=== PATIENT | male | born 1980 | race Caucasian/White ===

== ENCOUNTER 2018-03-25 09:57 | Outpatient (CLI) | payer OTHER ==
[2018-03-25] MEDS ORDERED: BUFFERED LIDOCAINE 10 ML SYRINGE ONE (11:06)
[2018-03-25] MEDS ORDERED: GADOPENTETATE DIMEGLUMINE 5 ML VIAL IVP ONE ×2 (11:07→13:13)
[2018-03-25] MEDS ORDERED: IOTHALAMATE MEGLUMINE 50 ML VIAL ONE (11:07)
[2018-03-25] MEDS ORDERED: BUFFERED LIDOCAINE 10 ML SYRINGE IU ONE (13:13)
[2018-03-25] MEDS ORDERED: IOTHALAMATE MEGLUMINE 50 ML VIAL IVP ONE (13:13)
--- NOTE | 2018-03-25 15:32 | XRAY Report ---
Reason: PAIN IN SHOUDLER Procedure Date: 03/25/2018 Accession Number: [id number] / [id number] Procedure: FL - Arthrogram Needle Placement CPT Code: FULL RESULT: EXAM: LEFT SHOULDER ARTHROGRAPHIC INJECTION WITH FLUOROSCOPIC GUIDANCE EXAM DATE: 03/25/2018 11:57 AM. CLINICAL HISTORY: Pain in shoulder. COMPARISON: ARTHROGRAM SHOULDER LT 03/25/2018 11:32 AM. TECHNIQUE: The risks, benefits, and alternatives of the procedure were discussed with the patient. All questions were answered. Written and verbal consent were obtained. The glenohumeral joint was marked under fluoroscopy and prepped and draped in a sterile manner. Local anesthesia was performed with 1% lidocaine. A 22-gauge needle was then inserted into the glenohumeral joint. 10 mL of a solution containing 25% 1% lidocaine, 25% iodinated contrast, and a 1:200 dilution of gadolinium contrast in sterile saline was then injected. The needle was removed without immediate complication. Other: None. Fluoroscopy Time: 0.3 minutes. Number of Images: 6. FINDINGS: Bones and joints: No fracture or subluxation. Injection: Fluoroscopic images demonstrate needle placement and contrast in the glenohumeral joint. No contrast extravasation outside of the glenohumeral joint. IMPRESSION: Successful fluoroscopically guided arthrographic injection of the shoulder. [facility]
--- NOTE | 2018-03-26 09:23 | MRI Report ---
Reason: PAIN IN SHOUDLER Procedure Date: 03/25/2018 Accession Number: [id number] / [id number] Procedure: MRI - Arthrogram Shoulder LT CPT Code: FULL RESULT: EXAM: LEFT SHOULDER MRI ARTHROGRAM WITH CONTRAST EXAM DATE: 03/25/2018 12:52 PM. CLINICAL HISTORY: Pain in left shoulder. COMPARISON: None. TECHNIQUE: Multiplanar, multisequence T1-weighted and fluid-sensitive sequences of the shoulder after an arthrographic injection of dilute gadolinium, dictated under a separate exam. Other: None. FINDINGS: Acromioclavicular Region: The acromion is type II. Mild degenerative change at the joint. The coracoacromial and coracoclavicular ligaments are intact. Minimal edema without contrast in the subacromial/subdeltoid bursa. Glenohumeral Region: No subluxation. No loose bodies. Shallow partial-thickness cartilage loss at the central joint. Deep partial-thickness fissuring/tearing at the humeral head. Small humeral head osteophytes. The glenohumeral ligaments and joint capsule are unremarkable. Bone Marrow: No fracture or bone lesion. Reactive cysts at the greater tuberosity. Labrum: Partial-thickness undersurface tear superior labrum extending deep and anterior to the biceps anchor. Fraying and free edge irregularity at the anterior inferior aspect. Biceps Tendon: Moderate thickening of the intra-articular portion. Musculature/Rotator Cuff: Mild supraspinatus tendinopathy with shallow bursal surface fraying. Focal partial-thickness articular surface and intrasubstance tear at the anterior insertion. Infraspinatus and teres minor tendons intact. Thickening and contrast imbibition at the subscapularis insertion. A component of this is likely due to contrast administration. No edema or fatty atrophy. Other: The subcutaneous tissues are unremarkable. IMPRESSION: 1. Mild supraspinatus tendinopathy with shallow bursal surface fraying and focal shallow partial-thickness intrasubstance and articular surface tear anterior insertion. 2. Moderate biceps tendinopathy. 3. Superior labral tear extending anterior to posterior (SLAP tear). Degenerative fraying anterior-inferior labrum. 4. Mild degenerative changes at the glenohumeral joint with deep partial-thickness fissuring/tearing of the humeral head cartilage. 5. Mild acromioclavicular degenerative change. [facility] MUSCULOSKELETAL RADIOLOGY SECTION
== END 2018-03-25 09:58 | disposition home or self-care (01) ==
LOC: DI 09:57
PROVIDERS: ATTEND Physician Assistant
DX: M75.102 Unspecified rotator cuff tear or rupture of left shoulder, not specified as traumatic (principal); S43.432A Superior glenoid labrum lesion of left shoulder, initial encounter; M19.012 Primary osteoarthritis, left shoulder; M67.98 Unspecified disorder of synovium and tendon, other site
CPT/HCPCS: 23350; 73222; 77002; Q9961

== ENCOUNTER 2019-02-13 05:55 | Day surgery (SDC) | payer OTHER ==
[2019-02-13] MEDS ORDERED: PROPOFOL 200 MG/20 ML VIAL IVP ONE (05:56)
[2019-02-13] MEDS ORDERED: fentaNYL 100 MCG/2 ML VIAL IVP ONE (05:56)
[2019-02-13] MEDS ORDERED: ePHEDrine 50 MG/ML VIAL IVP ONE (05:56)
[2019-02-13] MEDS ORDERED: MIDAZOLAM 2 MG/2 ML VIAL IVP ONE (05:56)
[2019-02-13] MEDS ORDERED: KETOROLAC 30 MG/ML VIAL IVP ONE (05:56)
[2019-02-13] MEDS ORDERED: DEXAMETHASONE 4 MG/ML VIAL IVP ONE (05:56)
[2019-02-13] MEDS ORDERED: cefTRIAXone 2 GM VIAL ONE (06:13)
[2019-02-13] MEDS ORDERED: BUPIVACAINE 0.25% PF 30 ML VIAL ONE (06:51)
[2019-02-13] MEDS ORDERED: LACTATED RINGERS 1,000 ML IV ONE (06:53)
--- NOTE | 2019-02-13 07:00 | ANESTHESIA ---
Pre-Anesthesia VS, & Labs - Diagnosis L AC joint arthritis - Procedure L open DCE Vital Signs: Temp Pulse Resp BP Pulse Ox 36.5 C 71 16 134/84 H 100 02/13/19 06:38 02/13/19 06:38 02/13/19 06:38 02/13/19 06:38 02/13/19 06:38 Height 5 ft 9.5 in Weight (kg) 92.99 kg - NPO >8 hours Last Fluid Intake: 0415 Home Medications and Allergies Home Medications: Ambulatory Orders Fexofenadine HCl [Annmarie Allergy] 180 mg PO 02/09/19 Pseudoephedrine [Sudafed] 60 mg PO Q6H 02/09/19 Guaifenesin/Dextromethorphan [Cough Dm Syrup] 1 PRN 02/13/19 Multivitamin [Multivitamins] 1 DAILY 02/13/19 Fexofenadine HCl [Annmarie Allergy] 180 mg PO 02/09/19 Pseudoephedrine [Sudafed] 60 mg PO Q6H 02/09/19 Guaifenesin/Dextromethorphan [Cough Dm Syrup] 1 PRN 02/13/19 Multivitamin [Multivitamins] 1 DAILY 02/13/19 Allergies/Adverse Reactions: Allergies Allergy/AdvReac Type Severity Reaction Status Date / Time No Known Drug Allergies Allergy Verified 02/09/19 14:18 Anes History & Medical History - Anesthetic History Anesthesia Complications: reports: No previous complications Family history of Anesthesia Complications: Denies Family history of Malignant Hyperthermia: Denies - Medical History Cardiovascular: reports: None Pulmonary: reports: None Gastrointestinal: reports: None Urinary: reports: None Musculoskeletal: reports: Other Endocrine/Autoimmune: reports: None Skin: reports: None Psychosocial: reports: Alcohol (4-5 a week) Exam General: Alert, Oriented x3, Cooperative Dental: WNL Mouth Opening: Greater than 4 Fingerbreadths Neck Mobility: Normal Mallampati classification: I Thyromental Distance: greater than 6 cm Respiratory: Lungs clear, Normal breath sounds, No respiratory distress, Other (dry cough for 3 days) Cardiovascular: Regular rate Neurological: Normal speech Mental/Cognitive Status: Alert/Oriented X3, Normal for patient Cognitive Status: Within normal limits Plan Anesthesia Type: General Consent for Procedure(s) Verified and Reviewed: Yes Code Status: Attempt Resuscitation ASA classification: 1-Healthy patient Is this case an emergency?: No
[2019-02-13] MEDS ORDERED: BUPIVACAINE 0.25% PF 30 ML VIAL SUBQ ONE ×3 (07:20→08:20)
[2019-02-13] MEDS ORDERED: oxyCODONE 5 MG TABLET PO PRN (08:43)
[2019-02-13] MEDS ORDERED: ONDANSETRON 4 MG/2 ML VIAL IVP PRN (08:43)
--- NOTE | 2019-02-13 08:48 | OPERATIVE REPORT ---
Operative Report - Other Other Information/Narrative: Date of Surgery: 13 February 2019 Pre-Op Diagnosis: Left acromioclavicular joint osteoarthritis Procedure: Left open distal clavicle excision Postop Diagnosis: Same Primary Surgeon: Harish Macias Secondary Surgeon: None Complications: None EBL: 25 cc IMPLANTS: None POSTOPERATIVE PLAN: 0-2 weeks-Sling at all times. Pendulum exercises 5 times per day. 2-6 weeks-Passive and active range of motion without limitations. 6-12 weeks-Gradually increase strengthening focusing on rotator cuff and scapular stabilizers. 12 weeks-No limitations. EXAMINATION UNDER ANESTHESIA: ROM: Full Anterior load and shift: Stable Posterior load and shift: Stable Inferior sulcus: Stable FINDINGS: Osteoarthritis of the left acromioclavicular joint, disc and distal clavicle removed INDICATION FOR SURGERY: 38-year-old male with superior left shoulder pain for over a year that is worse with bench press and other activities. An injection into the AC joint provided near complete relief for months. An injection into the biceps tendon sheath provided minimal relief for hours. The decision was made to move forward with distal clavicle excision as an isolated procedure based on the results of the injections. Nonoperative managment failed to resolve symptoms. The risks, benefits, and alternatives were discussed. Risks included pain, bleeding, infection, damage to nearby structures, lack of symptom relief, implant complications, stiffness, need for further surgeries, DVT, PE, stroke, and even . The patient signed a written consent form. PROCEDURE IN DETAIL: The patient was met in the preoperative holding on the day of the procedure. Operative extremity was signed. Consent was verified. The patient desired to proceed. Once general anesthesia was obtained the patient was placed in the supine position with a bump under the scapula. The shoulder and arm were prepped and draped in the standard fashion. A surgical timeout was held to confirm the patient identity, procedure, procedure, laterality, allergies, images, and antibiotics. All were in agreement we proceeded. A 5 cm saber type incision was made in line with his tattoo, centered over the acromioclavicular joint. Electrocautery was used to obtain hemostasis. Full- thickness skin flaps were made at the level of the fascia/joint capsule. A full-thickness longitudinal was made longitudinally to open the acromioclavicular joint. Electrocautery was used to dissect the joint capsule from the bony surfaces. 2 Homans were placed around the distal clavicle. Rongeur was used to debride the intra-articular disc. An 8 mm resection was measured and performed with a sagittal saw. Care was taken to ensure this cut was parallel to the joint surface. All sharp bony edges were rounded. A finger was placed with into the defect and the arm was adducted fully without any impingement in the joint. The joint was then irrigated copiously. A watertight capsular and fascial closure was performed with 0 Vicryl. The incision was closed with incisions for open procedures were closed with 2-0 Vicryl in the dermis and a running 3-0 Monocryl in the skin. Mastisol and Steri-Strips were applied. A sterile dressing and a sling was applied. The patient was awakened and transferred to the recovery room.
[2019-02-13] MEDS ORDERED: oxyCODONE 5 MG TABLET ONE (09:31)
[2019-02-13 09:45] VITALS: BP 131/76
== END 2019-02-13 05:56 | disposition home or self-care (01) ==
LOC: SDS 05:55
PROVIDERS: ATTEND Orthopaedic Surgery
PROC: 0PBB0ZZ Excision of Left Clavicle, Open Approach (ICD-10-PCS; principal; 2019-02-13 07:30)
DX: M19.012 Primary osteoarthritis, left shoulder (principal)

== ENCOUNTER 2022-12-21 08:21 | Outpatient (CLI) | payer OTHER ==
[2022-12-21 12:02] LABS: EOSINOPHILS # (AUTO) 0.2 10^3/uL (0.0-0.7); EOSINOPHILS % (AUTO) 3.7 %; HCT - HEMATOCRIT 44.6 % (42.0-52.0); HGB - HEMOGLOBIN 15.3 g/dL (14.0-18.0); LYMPHOCYTES # (AUTO) 1.5 10^3/uL (1.5-3.5); LYMPHOCYTES % (AUTO) 36.6 %; MEAN CORPUSCULAR HEMOGLOBIN 31.2 pg (27.0-31.0); MEAN CORPUSCULAR HGB CONC 34.3 g/dL (32.0-36.0); MEAN PLATELET VOLUME 9.5 fL (7.4-11.4); MONOCYTES # (AUTO) 0.4 10^3/uL (0.0-1.0); MONOCYTES % (AUTO) 8.7 %; NEUTROPHILS % (AUTO) 49.8 %; PLT - PLATELET COUNT 253 10^3/uL (130-450); RED CELL DISTRIBUTION WIDTH 11.9 % (12.0-15.0)
[2022-12-21 12:19] LABS: ALBUMIN 4.6 g/dL (3.2-5.5); ALBUMIN/GLOBULIN RATIO 1.9 (1.0-2.2); ALKALINE PHOSPHATASE 50 IU/L (42-121); ALT ALANINE AMINOTRANSFERASE 20 IU/L (10-60); AST ASPARTATE AMINOTRANSFERASE 22 IU/L (10-42); BILIRUBIN,TOTAL 0.9 mg/dL (0.2-1.0); BUN - BLOOD UREA NITROGEN 16 mg/dL (6-20); CALCIUM 9.9 mg/dL (8.5-10.3); CARBON DIOXIDE - CO2 31 mmol/L (21-32); CHLORIDE 104 mmol/L (101-111); CHOL/HDL RATIO 3.6 (<5.0); CHOLESTEROL 198 mg/dL; CREATININE 1.2 mg/dL (0.6-1.3); GFR - MDRD 66 (>89); GLUCOSE 100 mg/dL (74-104); HDL CHOLESTEROL 55 mg/dL; LDL CHOLESTEROL,CALCULATED 132 mg/dL; LDL/HDL RATIO 2.4 (<3.6); POTASSIUM 4.5 mmol/L (3.5-4.5); SODIUM 139 mmol/L (135-145); TRIGLYCERIDES 57 mg/dL (48-352); VLDL CHOLESTEROL 11 mg/dL
== END 2022-12-21 08:22 | disposition home or self-care (01) ==
LOC: LAB.N 08:21
PROVIDERS: ATTEND Nurse Practitioner
DX: Z00.00 Encounter for general adult medical examination without abnormal findings (principal); Z13.220 Encounter for screening for lipoid disorders
CPT/HCPCS: 36415; 80053; 80061; 83721; 85025